=== PATIENT | female | born 1960 | race Caucasian/White ===

== ENCOUNTER → 2022-07-30 | Outpatient (CLI) | payer BC ==
--- NOTE | 2022-08-01 06:56 | BMR ---
EXAMINATION TYPE: MR breast BILAT wo/w con DATE OF EXAM: 07/30/2022 COMPARISON: Outside mammogram report March 09, 2022 BI-RADS 2. HISTORY: Left breast deflation, family hx breast cancer. TECHNIQUE: A series of fat and water weighted images in the long and short axis views of both breasts are obtained in conjunction with dynamic contrast MRI with subtraction technique. The patient was i njected with 10 mL intravenous Gadavist gadolinium contrast. Three-dimensional and additional postp rocessing imaging is created on independent workstation and reviewed during official interpretation o f this study. FINDINGS: Scattered fibroglandular tissue is present. Subcentimeter bilateral axillary lymph nodes ar e seen. No suspicious axillary adenopathy. No concerning focal fluid collections or cystic lesions in either breast. There are symmetric in size bilateral subglandular saline implants. No suspicious inf olding to suggest linguini sign or intracapsular rupture. Dynamic postcontrast imaging shows mild sunil kground enhancement. No abnormal skin thickening is seen in either breast. A well-defined 7 mm enhancing round mass in the lateral upper left breast favors low lying anterior benign lymph node. This can be correlated with s erial mammograms to document stability. Chest wall is intact bilaterally. No pathologic enhancement o r enhancing masses are present bilaterally. IMPRESSION: No MRI evidence for implant rupture. No convincing MRI evidence for invasive malignancy i n either breast. BI-RADS 2 benign findings right breast. BI-RADS 3 probable benign findings left breast. Clinical correlation advised for 7 mm lesion as detai led above to confirm suspected probable benign finding. Recommendation: Continued annual mammogram surveillance. Annual MRI surveillance in high risk patient s.
== END | disposition home or self-care (01) ==
LOC: RADMRIMAIN 19:18
PROVIDERS: ATTEND Plastic Surgery
DX: Z98.82 Breast implant status (principal); Z80.3 Family history of malignant neoplasm of breast
CPT/HCPCS: 77049; A9585

== ENCOUNTER → 2022-09-05 | Outpatient (CLI) | payer BC ==
--- NOTE | 2022-09-06 04:34 | MR ---
EXAMINATION TYPE: MR ankle LT wo con DATE OF EXAM: 09/05/2022 COMPARISON: None HISTORY: Left foot pain and swelling since March 2022. Multiplanar multiecho imaging of the left ankle performed with no contrast. Achilles tendon is intact. Plantar fascia appears intact. The medial and lateral flexor tendons of th e ankle appear intact. There is mild ankle joint effusion and subtalar effusion. The collateral ligam ents are intact. No evidence of a fracture. No focal bone destruction. There is abnormal increased signal on the T2-weighted images involving the majority of the cuboidal b one. There is similar abnormal increased signal in the medial navicular. The cuneiform bones appear i ntact. Proximal metatarsals are intact. IMPRESSION: Abnormal increased signal in the navicular bone and the mild bone consistent with bone bruise and kat ma. Mild ankle joint effusion and suggestive of nonspecific synovitis. No fracture seen.
== END | disposition home or self-care (01) ==
LOC: RADMRIMAIN 15:22
PROVIDERS: ATTEND Podiatrist Foot & Ankle Surgery
DX: M25.472 Effusion, left ankle (principal); M76.71 Peroneal tendinitis, right leg